=== PATIENT | male | born 1950 | race Hispanic/Latino ===

== ENCOUNTER → 2025-04-05 | Day surgery (SDC) | payer MEDICARE ==
[2025-04-04 09:34] LABS: BASOPHILS % 0.6 % (0.0-1.0); EOSINOPHILS % 3.4 % (0.0-6.0); LYMPHOCYTES % 25.0 % (18.0-39.1); MONOCYTES % 8.2 % (4.4-11.3); NEUTROPHILS % 62.2 % (38.7-80.0); RED CELL DISTRIBUTION WIDTH 12.9 % (11.7-14.4)
[2025-04-04 10:07] LABS: EST GLOMERULAR FILTRATION RATE 89.0 ML/MIN (>=60)
[~2025-04-05] MED LIST: ACETAMINOPHEN 1000 MG/100 ML 100 ML IV ONE; ACETAMINOPHEN 1000 MG/100 ML IV PRN; ASPIRIN 325 MG TAB PO SCH; ASPIRIN81 MG PO; CELECOXIB 100 MG CAP PO SCH; DIPHENHYDRAMINE HCL INJ 50 MG/ML VIAL IV PRN; DOCUSATE SODIUM 100 MG CAP PO PRN; EPHEDRINE SULFATE INJ 50 MG/ML VIAL ONE; FAMOTIDINE 20 MG/2 ML VIAL IV ONE; FENTANYL CITRATE/PF 100MCG/2 ML INJ ONE; HYDROCODONE/APAP 5MG-325MG TAB PO PRN; HYDROCODONE/APAP 7.5MG-325MG 1 EA TAB PO PRN; LIDOCAINE HCL 2% LOCAL INJ 5 ML SDV VIAL INJ ONE; METOPROLOL SUCC50 MG PO; ONDANSETRON HCL INJ 2MG/ML 2ML 2 MG/ML VIAL IV PRN; ONDANSETRON HCL INJ 2MG/ML 2ML 2 MG/ML VIAL ONE; PIOGLITAZONE-M1 EAC1 PO; PRAVASTATIN SOD40 MG PO; PROPOFOL IV EMULSION 50 ML IV ONE; ROPIVACAINE/EPI/CLONIDINE/KET 50 ML SYRINGE INJ ONE; SEVOFLURANE INHAL SOLN 250 ML PEN BTL ONE; SODIUM CHLORIDE 0.9% 1000ML 1,000 ML IV SCH; WARFARIN SODIUM3 MG PO
[2025-04-05] MEDS: DEXAMETHASONE SOD PHOS 10 MG/1 ML VIAL ONE (06:16)
[2025-04-05] MEDS: CEFAZOLIN SODIUM 2 GM ONE (06:16)
[2025-04-05] MEDS: CELECOXIB 200 MG CAP ONE (06:17)
[2025-04-05] MEDS: GABAPENTIN 300 MG CAP ONE (06:17)
[2025-04-05] MEDS: LACTATED RINGER'S 1,000 ML ONE (06:18)
[2025-04-05 07:10] LABS: INR 0.97
[2025-04-05 12:00] VITALS: BP 129/62; PULSE 62; RESP 18; O2SAT 96
== END | disposition home or self-care (01) ==
LOC: OR 05:19
PROVIDERS: ATTEND Specialist
DX: M17.11 Unilateral primary osteoarthritis, right knee (principal); E11.9 Type 2 diabetes mellitus without complications; Z95.2 Presence of prosthetic heart valve; Z79.01 Long term (current) use of anticoagulants; Z86.73 Personal history of transient ischemic attack (TIA), and cerebral infarction without residual deficits; Z79.84 Long term (current) use of oral hypoglycemic drugs; Z79.82 Long term (current) use of aspirin; Z01.810 Encounter for preprocedural cardiovascular examination; Z01.812 Encounter for preprocedural laboratory examination; Z79.899 Other long term (current) drug therapy
CPT/HCPCS: 27447; 36415 ×2; 71046; 73560; 80048; 82948; 85025; 85610; 85730; 86850; 86900; 97116; 97161; C1713 ×2; C1776 ×4; J0131; J1100; J1308; J2003; J2405; J2704; J3010; J7121

== ENCOUNTER 2025-06-20 11:00 | Outpatient (RCR) | payer MEDICARE ==
[~2025-06-20 11:00] MED LIST changes: -ACETAMINOPHEN 1000 MG/100 ML 100 ML IV ONE; -ACETAMINOPHEN 1000 MG/100 ML IV PRN; -ASPIRIN 325 MG TAB PO SCH; -CELECOXIB 100 MG CAP PO SCH; -DIPHENHYDRAMINE HCL INJ 50 MG/ML VIAL IV PRN; -DOCUSATE SODIUM 100 MG CAP PO PRN; -EPHEDRINE SULFATE INJ 50 MG/ML VIAL ONE; -FAMOTIDINE 20 MG/2 ML VIAL IV ONE; -FENTANYL CITRATE/PF 100MCG/2 ML INJ ONE; -HYDROCODONE/APAP 5MG-325MG TAB PO PRN; -HYDROCODONE/APAP 7.5MG-325MG 1 EA TAB PO PRN; -LIDOCAINE HCL 2% LOCAL INJ 5 ML SDV VIAL INJ ONE; -ONDANSETRON HCL INJ 2MG/ML 2ML 2 MG/ML VIAL IV PRN; -ONDANSETRON HCL INJ 2MG/ML 2ML 2 MG/ML VIAL ONE; -PROPOFOL IV EMULSION 50 ML IV ONE; -ROPIVACAINE/EPI/CLONIDINE/KET 50 ML SYRINGE INJ ONE; -SEVOFLURANE INHAL SOLN 250 ML PEN BTL ONE; -SODIUM CHLORIDE 0.9% 1000ML 1,000 ML IV SCH
== END 2025-06-21 ==
LOC: PT 11:00
PROVIDERS: ATTEND Physician Assistant
DX: M17.11 Unilateral primary osteoarthritis, right knee (principal)